=== PATIENT | male | born 1935 | race Caucasian/White ===

== ENCOUNTER 2017-01-09 07:34 | Emergency (ER) | payer OTHER, BC ==
[~2017-01-09] VITALS: Ht 175.3 cm; Wt 98.3 kg
[~2017-01-09 07:34] MED LIST: CRESTOR5 MG PO; Coumadin,Jantoven PO; Lopressor PO; SENOKOT S,PE1 TABLET PO; Tambocor PO; Theragran-M,Centrum, PO; Tylenol Regular Stre PO; ULTRAM50 MG PO
[2017-01-09 08:34] LABS: MCH 29.1 PG (29.0-34.0); MCHC 32.4 G/DL (30.0-36.0); MCV 89.8 FL (86-99); MEAN PLAT.VOLUME 10.6 uM^3 (9.0-12.4); PLATELET COUNT 167 K/uL (156-360); RBC DIS.WIDTH-CV 14.1 % (11.8-14.6); RBC DIS.WIDTH-SD 46.5 % (39-53); RED BLOOD COUNT 5.01 M/uL (4.00-5.50); WHITE BLOOD COUNT 9.2 K/uL (4.1-10.2)
[2017-01-09 08:42] LABS: CHLORIDE 107 mEq/L (99-109); POTASSIUM 4.6 mEq/L (3.7-5.4); SODIUM 141 mEq/L (136-147)
[2017-01-09 08:44] LABS: GLUCOSE 125 mg/dL (70-99)
[2017-01-09 08:45] LABS: ANION GAP 9 MEQ/L (2-14)
[2017-01-09 08:47] LABS: GFR ESTIMATE (CALCULATED) 41 mL/min/
[2017-01-09 08:48] LABS: UREA NITROGEN (BUN) 26 mg/dL (9-23)
[2017-01-09 08:55] LABS: TROP-I INTERPRETATION NEGATIVE; TROPONIN-I < 0.01 ng/mL (0.0-0.30)
[2017-01-09 12:05] LABS: TROP-I INTERPRETATION NEGATIVE; TROPONIN-I < 0.01 ng/mL (0.0-0.30)
[2017-01-09 13:09] VITALS: BP 108/69
== END 2017-01-09 13:10 | disposition home or self-care (01) ==
LOC: EME → EDBD 07:34 → EME 13:10
PROVIDERS: Emergency Medicine
DX: R55 Syncope and collapse (principal); I10 Essential (primary) hypertension; I25.2 Old myocardial infarction; Z95.0 Presence of cardiac pacemaker; Z79.01 Long term (current) use of anticoagulants; Z88.5 Allergy status to narcotic agent; Z87.891 Personal history of nicotine dependence
CPT/HCPCS: 71010; 80048; 84484; 85027; 93005; 99281; 99285

== ENCOUNTER 2017-04-16 16:16 | Emergency (ER) | payer OTHER, BC ==
[~2017-04-16] VITALS: Ht 175.3 cm; Wt 96.5 kg
[2017-04-16 17:13] LABS: HEMATOCRIT 45.9 % (38.0-50.0); MCHC 32.9 G/DL (30.0-36.0); MCV 91.1 FL (86-99); MEAN PLAT.VOLUME 10.3 uM^3 (9.0-12.4); PLATELET COUNT 142 K/uL (156-360); RBC DIS.WIDTH-CV 14.5 % (11.8-14.6); RBC DIS.WIDTH-SD 48.5 % (39-53); RED BLOOD COUNT 5.04 M/uL (4.00-5.50); WHITE BLOOD COUNT 7.6 K/uL (4.1-10.2)
[2017-04-16 17:22] LABS: CHLORIDE 105 mEq/L (99-109); POTASSIUM 4.7 mEq/L (3.7-5.4); SODIUM 142 mEq/L (136-147)
[2017-04-16 17:24] LABS: GLUCOSE 111 mg/dL (70-99)
[2017-04-16 17:25] LABS: ANION GAP 11 MEQ/L (2-14)
[2017-04-16 17:26] LABS: TOTAL BILIRUBIN 0.5 mg/dL (0.0-1.0)
[2017-04-16 17:28] LABS: ALKALINE PHOSPHATASE 71 IU/L (3-129); GFR ESTIMATE (CALCULATED) 32 mL/min/
[2017-04-16 17:29] LABS: UREA NITROGEN (BUN) 25 mg/dL (9-23)
[2017-04-16 17:31] LABS: LIPASE 38 U/L (1.0-51.0)
[2017-04-16 17:34] LABS: TROP-I INTERPRETATION NEGATIVE; TROPONIN-I < 0.01 ng/mL (0.0-0.30)
[2017-04-16] MEDS ORDERED: PEPCID20 MG PO (18:04)
[2017-04-16] MEDS ORDERED: THORAZINE25 MG PO (18:04)
[2017-04-16 19:22] VITALS: BP 198/99
== END 2017-04-16 19:25 | disposition home or self-care (01) ==
LOC: EME 16:16
PROVIDERS: Physician Assistant
DX: R06.6 Hiccough (principal); J02.9 Acute pharyngitis, unspecified; I45.10 Unspecified right bundle-branch block; I48.91 Unspecified atrial fibrillation; Z79.01 Long term (current) use of anticoagulants; I10 Essential (primary) hypertension; I25.2 Old myocardial infarction; Z87.891 Personal history of nicotine dependence
CPT/HCPCS: 70360; 71020; 80053; 83690; 84484; 85027; 93005; 99281; 99284; Q0161

== ENCOUNTER 2017-04-18 13:06 | Emergency (ER) | payer OTHER, BC ==
[~2017-04-18] VITALS: Ht 177.8 cm; Wt 95.8 kg
[~2017-04-18 13:06] MED LIST changes: +PEPCID20 MG PO; +THORAZINE25 MG PO
[2017-04-18] MEDS ORDERED: VALIUM5 MG PO (17:08)
[2017-04-18 17:45] VITALS: BP 157/91
== END 2017-04-18 17:47 | disposition home or self-care (01) ==
LOC: EME 13:06
DX: R06.6 Hiccough (principal); Z85.46 Personal history of malignant neoplasm of prostate; Z85.528 Personal history of other malignant neoplasm of kidney; I10 Essential (primary) hypertension; I25.2 Old myocardial infarction; Z87.891 Personal history of nicotine dependence
CPT/HCPCS: 70450; 99281; 99283

== ENCOUNTER 2017-11-08 17:08 | Emergency (ER) | payer OTHER, BC ==
[~2017-11-08] VITALS: Ht 177.8 cm; Wt 90.0 kg
[~2017-11-08 17:08] MED LIST changes: +VALIUM5 MG PO
[2017-11-08 18:03] LABS: BASOPHIL (%) 0.3 % (0-1); EOSINOPHIL (%) 1.7 % (0-5); EOSINOPHIL COUNT 0.2 K/uL (0-0.3); HEMATOCRIT 41.6 % (38.0-50.0); HEMOGLOBIN 13.8 G/DL (12.5-16.6); IMMATURE GRANULOCYTE (%) 1.2 % (0.0-0.7); LYMPHOCYTE (%) 6.3 % (15-42); LYMPHOCYTE COUNT 0.6 K/uL (1.0-2.8); MCHC 33.2 G/DL (30.0-36.0); MCV 93.5 FL (86-99); MONOCYTE (%) 10.8 % (3-12); NEUTROPHIL (%) 79.7 % (45-76); NEUTROPHIL COUNT 7.4 K/uL (1.8-6.4); PLATELET COUNT 140 K/uL (156-360); RBC DIS.WIDTH-CV 13.8 % (11.8-14.6); RBC DIS.WIDTH-SD 47.4 % (39-53); RED BLOOD COUNT 4.45 M/uL (4.00-5.50); WHITE BLOOD COUNT 9.3 K/uL (4.1-10.2)
[2017-11-08 18:11] LABS: CHLORIDE 110 mEq/L (99-109); POTASSIUM 5.2 mEq/L (3.7-5.4); SODIUM 141 mEq/L (136-147)
[2017-11-08 18:13] LABS: GLUCOSE 113 mg/dL (70-99)
[2017-11-08 18:17] LABS: CREATININE 1.7 mg/dL (0.6-1.3); GFR ESTIMATE (CALCULATED) 41 mL/min/ (58.99-99999)
[2017-11-08 18:18] LABS: UREA NITROGEN (BUN) 20 mg/dL (9-23)
[2017-11-08 18:31] LABS: APPEARANCE CLEAR ((CLEAR)); BILIRUBIN NEGATIVE; BLOOD SMALL; COLOR YELLOW ((YELLOW)); GLUCOSE (STRIP) NEGATIVE; KETONES NEGATIVE; LEUKOCYTES NEGATIVE; NITRITE NEGATIVE; PROTEIN (STRIP) NEGATIVE
[2017-11-08 18:33] LABS: BACTERIA NONE SEEN /HPF; EPITHELIAL CELLS RARE /HPF; MUCUS NONE SEEN /LPF; RED BLOOD CELLS 0-5 /HPF (0-5); UCUL ADDED? NO; WHITE BLOOD CELLS 0-5 /HPF (0-5)
[2017-11-08 18:41] LABS: TROP-I INTERPRETATION NEGATIVE; TROPONIN-I < 0.01 ng/mL (0.0-0.30)
[2017-11-08 20:21] LABS: INTER. NORMALIZED RATIO 2.9
[2017-11-08 21:09] LABS: TROP-I INTERPRETATION NEGATIVE; TROPONIN-I 0.02 ng/mL (0.0-0.30)
[2017-11-08 22:42] VITALS: BP 167/92
== END 2017-11-08 22:56 | disposition home or self-care (01) ==
LOC: EME 17:08
PROVIDERS: Physician Assistant Medical
DX: M25.511 Pain in right shoulder (principal); R07.9 Chest pain, unspecified; V43.02XA Car driver injured in collision with other type car in nontraffic accident, initial encounter; Y92.410 Unspecified street and highway as the place of occurrence of the external cause; I10 Essential (primary) hypertension; E78.5 Hyperlipidemia, unspecified; Z95.0 Presence of cardiac pacemaker; Z87.891 Personal history of nicotine dependence; Z88.5 Allergy status to narcotic agent
CPT/HCPCS: 71045; 80048; 81003; 84484; 85025; 85610; 93005; 99281; 99285

== ENCOUNTER 2018-01-11 20:07 | Inpatient (IN) | payer OTHER, BC ==
[~2018-01-11] VITALS: Ht 172.7 cm; Wt 91.8 kg
[2018-01-11 21:01] LABS: HEMATOCRIT 43.9 % (38.0-50.0); HEMOGLOBIN 14.7 G/DL (12.5-16.6); MCH 30.3 PG (29.0-34.0); MCHC 33.5 G/DL (30.0-36.0); MCV 90.5 FL (86-99); PLATELET COUNT 154 K/uL (156-360); RBC DIS.WIDTH-CV 14.1 % (11.8-14.6); RBC DIS.WIDTH-SD 46.8 % (39-53); RED BLOOD COUNT 4.85 M/uL (4.00-5.50); WHITE BLOOD COUNT 12.4 K/uL (4.1-10.2)
[2018-01-11 21:08] LABS: ALBUMIN 4.4 g/dL (3.2-4.8)
[2018-01-11 21:09] LABS: CHLORIDE 103 mEq/L (99-109); POTASSIUM 4.8 mEq/L (3.7-5.4); SODIUM 139 mEq/L (136-147)
[2018-01-11 21:11] LABS: GLUCOSE 152 mg/dL (70-99); TOTAL PROTEIN 7.2 g/dL (6.4-8.3)
[2018-01-11 21:13] LABS: TOTAL BILIRUBIN 0.5 mg/dL (0.0-1.0)
[2018-01-11 21:14] LABS: ALKALINE PHOSPHATASE 106 IU/L (3-129)
[2018-01-11 21:15] LABS: GFR ESTIMATE (CALCULATED) 34 mL/min/ (58.99-99999)
[2018-01-11 21:16] LABS: AST (GOT) 20 IU/L (2-34); UREA NITROGEN (BUN) 30 mg/dL (9-23)
[2018-01-11 21:17] LABS: ALT (GPT) 22 IU/L (3-49)
[2018-01-11 22:40] LABS: APPEARANCE CLEAR ((CLEAR)); BILIRUBIN NEGATIVE; BLOOD NEGATIVE; COLOR YELLOW ((YELLOW)); GLUCOSE (STRIP) 50; KETONES NEGATIVE; LEUKOCYTES NEGATIVE; NITRITE NEGATIVE; PROTEIN (STRIP) 30; SPECIFIC GRAVITY 1.016 (1.000-1.030); UCUL ADDED? NO; UROBILINOGEN 0.2 MG/DL (0.2-1.0)
[2018-01-11 23:03] LABS: LIPASE 34 U/L (1.0-51.0)
[2018-01-11 23:06] LABS: TROP-I INTERPRETATION NEGATIVE; TROPONIN-I < 0.01 ng/mL (0.0-0.30)
[2018-01-12] MEDS ORDERED: AMIODARONE HCL200 MG PO (01:33)
[2018-01-12] MEDS ORDERED: METOPROLOL SUCC50 MG PO (01:34)
[2018-01-12] MEDS ORDERED: ATORVASTATIN CA80 MG PO (01:35)
[2018-01-12] MEDS ORDERED: CALCITRIOL0.25 MCG PO (01:37)
[2018-01-12] MEDS ORDERED: ADVAIR 250/501 DISK IH (01:38)
[2018-01-12] MEDS ORDERED: ICAPS TABLET1 EACH PO (01:39)
[2018-01-12] MEDS ORDERED: WARFARIN SODIU2.5 MG PO (01:43)
[2018-01-12] MEDS ORDERED: WARFARIN SODIUM5 MG PO (01:45)
[2018-01-12] MEDS ORDERED: COUMADIN7.5 MG PO (01:46)
[2018-01-12 05:13] LABS: TROP-I INTERPRETATION NEGATIVE; TROPONIN-I < 0.01 ng/mL (0.0-0.30)
[2018-01-12 07:42] VITALS: BP 182/82
[2018-01-12 11:14] VITALS: BP 159/73
[2018-01-12] MEDS ORDERED: CALCIPOTRIENE60 G1 TP (11:23)
[2018-01-12] MEDS ORDERED: TRELEGY ELLIPT1 EACH IH (11:24)
[2018-01-12 12:49] LABS: INTER. NORMALIZED RATIO 1.3
[2018-01-12] MEDS ORDERED: COUMADIN5 MG PO (14:02)
[2018-01-12 15:13] VITALS: BP 133/63
[2018-01-12 16:49] LABS: HEMOGLOBIN 13.6 G/DL (12.5-16.6); MCH 29.7 PG (29.0-34.0); MCHC 33.2 G/DL (30.0-36.0); MCV 89.5 FL (86-99); PLATELET COUNT 138 K/uL (156-360); RBC DIS.WIDTH-CV 14.5 % (11.8-14.6); RBC DIS.WIDTH-SD 47.4 % (39-53); RED BLOOD COUNT 4.58 M/uL (4.00-5.50); WHITE BLOOD COUNT 28.6 K/uL (4.1-10.2)
[2018-01-12 17:15] LABS: ALBUMIN 3.8 G/DL (3.2-4.8); ALKALINE PHOSPHATASE 77 IU/L (3-129); ALT (GPT) 15 IU/L (3-49); AST (GOT) 15 IU/L (2-34); C-REACTIVE PROTEIN 114.8 MG/L (0-10); CHLORIDE 101 MEQ/L (99-109); GFR ESTIMATE (CALCULATED) 52 mL/min/ (58.99-99999); GLUCOSE 211 mg/dL (70-99); POTASSIUM 4.1 MEQ/L (3.7-5.4); SODIUM 136 MEQ/L (136-147); TOTAL BILIRUBIN 0.9 MG/DL (0.0-1.0); TOTAL PROTEIN 5.5 G/DL (6.4-8.3); UREA NITROGEN (BUN) 25 mg/dL (9-23)
[2018-01-12 17:33] LABS: CREATININE 1.4 MG/DL (0.6-1.3)
[2018-01-12 19:14] VITALS: BP 160/73
[2018-01-12 23:23] VITALS: BP 116/60
[2018-01-13 03:11] VITALS: BP 102/55
[2018-01-13 07:21] LABS: HEMATOCRIT 40.8 % (38.0-50.0); HEMOGLOBIN 13.5 G/DL (12.5-16.6); MCH 30.6 PG (29.0-34.0); MCHC 33.1 G/DL (30.0-36.0); MCV 92.5 FL (86-99); PLATELET COUNT 124 K/uL (156-360); RBC DIS.WIDTH-CV 14.8 % (11.8-14.6); RBC DIS.WIDTH-SD 50.6 % (39-53); RED BLOOD COUNT 4.41 M/uL (4.00-5.50); WHITE BLOOD COUNT 26.2 K/uL (4.1-10.2)
[2018-01-13 07:37] LABS: INTER. NORMALIZED RATIO 1.5
[2018-01-13 08:38] VITALS: BP 130/60
[2018-01-13 09:51] LABS: CHLORIDE 104 MEQ/L (99-109); CREATININE 1.6 MG/DL (0.6-1.3); GFR ESTIMATE (CALCULATED) 44 mL/min/ (58.99-99999); GLUCOSE 163 mg/dL (70-99); POTASSIUM 4.2 MEQ/L (3.7-5.4); SODIUM 137 MEQ/L (136-147); UREA NITROGEN (BUN) 32 mg/dL (9-23)
[2018-01-13 11:03] VITALS: BP 91/56
[2018-01-13 19:36] VITALS: BP 94/58
[2018-01-13 22:57] VITALS: BP 93/54
[2018-01-13 23:14] VITALS: BP 114/57
[2018-01-14 03:56] VITALS: BP 109/70
[2018-01-14 05:42] LABS: INTER. NORMALIZED RATIO 2.1
[2018-01-14 08:18] VITALS: BP 117/59
[2018-01-14 08:53] LABS: ALBUMIN 2.9 G/DL (3.2-4.8); ALKALINE PHOSPHATASE 71 IU/L (3-129); ALT (GPT) 14 IU/L (3-49); CHLORIDE 106 MEQ/L (99-109); CREATININE 1.8 MG/DL (0.6-1.3); GFR ESTIMATE (CALCULATED) 39 mL/min/ (58.99-99999); POTASSIUM 3.8 MEQ/L (3.7-5.4); SODIUM 140 MEQ/L (136-147); TOTAL PROTEIN 4.9 G/DL (6.4-8.3); UREA NITROGEN (BUN) 35 mg/dL (9-23)
[2018-01-14 08:56] LABS: AST (GOT) 24 IU/L (2-34); GLUCOSE 110 mg/dL (70-99); TOTAL BILIRUBIN 0.7 MG/DL (0.0-1.0)
[2018-01-14 09:01] LABS: BASOPHIL (%) 0.1 % (0-1); EOSINOPHIL (%) 0.1 % (0-5); HEMATOCRIT 37.3 % (38.0-50.0); HEMOGLOBIN 12.2 G/DL (12.5-16.6); IMMATURE GRANULOCYTE (%) 2.5 % (0.0-0.7); LYMPHOCYTE (%) 2.8 % (15-42); LYMPHOCYTE COUNT 0.5 K/uL (1.0-2.8); MCH 30.4 PG (29.0-34.0); MCHC 32.7 G/DL (30.0-36.0); MONOCYTE (%) 6.8 % (3-12); MONOCYTE COUNT 1.2 K/uL (0-0.8); NEUTROPHIL (%) 87.7 % (45-76); PLATELET COUNT 109 K/uL (156-360); RBC DIS.WIDTH-CV 14.6 % (11.8-14.6); RBC DIS.WIDTH-SD 50.4 % (39-53); RED BLOOD COUNT 4.01 M/uL (4.00-5.50); WHITE BLOOD COUNT 18.2 K/uL (4.1-10.2)
[2018-01-14 11:58] VITALS: BP 122/69
[2018-01-14 16:21] VITALS: BP 127/72
[2018-01-14 20:22] VITALS: BP 138/81
[2018-01-15] VITALS (7 sets, daily range): BP systolic 128–142; BP diastolic 64–92
[2018-01-15 06:17] LABS: HEMATOCRIT 35.5 % (38.0-50.0); HEMOGLOBIN 11.5 G/DL (12.5-16.6); MCH 29.6 PG (29.0-34.0); MCHC 32.4 G/DL (30.0-36.0); MCV 91.3 FL (86-99); PLATELET COUNT 121 K/uL (156-360); RBC DIS.WIDTH-CV 14.6 % (11.8-14.6); RBC DIS.WIDTH-SD 49.1 % (39-53); RED BLOOD COUNT 3.89 M/uL (4.00-5.50); WHITE BLOOD COUNT 15.1 K/uL (4.1-10.2)
[2018-01-15 06:21] LABS: CHLORIDE 108 MEQ/L (99-109); CREATININE 1.4 MG/DL (0.6-1.3); GFR ESTIMATE (CALCULATED) 52 mL/min/ (58.99-99999); GLUCOSE 104 mg/dL (70-99); SODIUM 138 MEQ/L (136-147); UREA NITROGEN (BUN) 23 mg/dL (9-23)
[2018-01-16 03:10] VITALS: BP 150/85
[2018-01-16 05:27] LABS: HEMATOCRIT 36.1 % (38.0-50.0); HEMOGLOBIN 11.9 G/DL (12.5-16.6); MCH 29.8 PG (29.0-34.0); MCV 90.3 FL (86-99); PLATELET COUNT 137 K/uL (156-360); RBC DIS.WIDTH-CV 14.6 % (11.8-14.6); RBC DIS.WIDTH-SD 48.8 % (39-53); WHITE BLOOD COUNT 10.2 K/uL (4.1-10.2)
[2018-01-16 05:32] LABS: INTER. NORMALIZED RATIO 2.3
[2018-01-16 05:54] LABS: CHLORIDE 108 MEQ/L (99-109); CREATININE 1.5 MG/DL (0.6-1.3); GFR ESTIMATE (CALCULATED) 48 mL/min/ (58.99-99999); GLUCOSE 152 mg/dL (70-99); POTASSIUM 3.7 MEQ/L (3.7-5.4); SODIUM 138 MEQ/L (136-147); UREA NITROGEN (BUN) 21 mg/dL (9-23)
[2018-01-16 07:50] VITALS: BP 148/90
[2018-01-16 11:55] VITALS: BP 140/91
[2018-01-16] MEDS ORDERED: CIPROFLOXACIN500 M1 PO (12:25)
[2018-01-16] MEDS ORDERED: METRONIDAZOLE500 MG PO (12:25)
== END 2018-01-16 16:28 | disposition home or self-care (01) | DRG 683 ==
LOC: EME 20:07 → EDOF 01-12 04:37 → 3EAST 01-12 04:37 → ENRESERV 01-12 04:45 → 3EAST 01-12 07:34
PROVIDERS: Emergency Medicine; Family Medicine; Hospitalist
PROC: 5A09357 Assistance with Respiratory Ventilation, Less than 24 Consecutive Hours, Continuous Positive Airway Pressure (ICD-10-PCS; principal; 2018-01-13)
DX: N17.9 Acute kidney failure, unspecified (principal); J98.11 Atelectasis; I25.10 Atherosclerotic heart disease of native coronary artery without angina pectoris; I48.0 Paroxysmal atrial fibrillation; E78.5 Hyperlipidemia, unspecified; Z95.5 Presence of coronary angioplasty implant and graft; I25.2 Old myocardial infarction; Z96.653 Presence of artificial knee joint, bilateral; Z95.0 Presence of cardiac pacemaker; Z87.891 Personal history of nicotine dependence; E66.9 Obesity, unspecified; Z68.30 Body mass index [BMI] 30.0-30.9, adult; Z79.01 Long term (current) use of anticoagulants; N18.3 Chronic kidney disease, stage 3 (moderate); I12.9 Hypertensive chronic kidney disease with stage 1 through stage 4 chronic kidney disease, or unspecified chronic kidney disease; Z90.5 Acquired absence of kidney; Z85.528 Personal history of other malignant neoplasm of kidney; E11.22 Type 2 diabetes mellitus with diabetic chronic kidney disease; E86.0 Dehydration; T50.8X5A Adverse effect of diagnostic agents, initial encounter; Z85.46 Personal history of malignant neoplasm of prostate; D69.6 Thrombocytopenia, unspecified; M19.90 Unspecified osteoarthritis, unspecified site; K57.30 Diverticulosis of large intestine without perforation or abscess without bleeding; K80.00 Calculus of gallbladder with acute cholecystitis without obstruction; E03.9 Hypothyroidism, unspecified; Z90.79 Acquired absence of other genital organ(s); Z85.828 Personal history of other malignant neoplasm of skin; Z80.9 Family history of malignant neoplasm, unspecified
CPT/HCPCS: 36415; 71275; 74174; 74176; 78227; 80048; 80053; 81003; 83605; 83690; 84484; 85025; 85027; 85610; 86140; 87040; 93005; 94640; 94640 76; 94660; 94760; 94799; 99281; 99285; A9537; J0360; J0696; J1170; J1644; J2405; J2543; J2805; J3370; J7030; J7050

== ENCOUNTER 2018-03-31 09:39 | Inpatient (IN) | payer OTHER, BC ==
[~2018-03-31] VITALS: Ht 170.2 cm; Wt 90.8 kg
[~2018-03-31 09:39] MED LIST changes: +ADVAIR 250/501 DISK IH; +AMIODARONE HCL200 MG PO; +ATORVASTATIN CA40 MG PO; +CALCIPOTRIENE60 G1 TP; +CALCITRIOL0.25 MCG PO; +CIPROFLOXACIN500 M1 PO; +COUMADIN5 MG PO; +COUMADIN7.5 MG PO; +ICAPS TABLET1 EACH PO; +METOPROLOL SUCC50 MG PO; +METRONIDAZOLE500 MG PO; +TRELEGY ELLIPT1 EACH IH; +WARFARIN SODIU2.5 MG PO; +WARFARIN SODIUM5 MG PO
[2018-03-31 10:25] LABS: APPEARANCE SL.HAZY ((CLEAR)); BILIRUBIN NEGATIVE; BLOOD NEGATIVE; COLOR AMBER ((YELLOW)); GLUCOSE (STRIP) >=500; KETONES NEGATIVE; LEUKOCYTES NEGATIVE; NITRITE NEGATIVE; PROTEIN (STRIP) 30; SPECIFIC GRAVITY 1.018 (1.000-1.030)
[2018-03-31 10:32] LABS: BACTERIA RARE /HPF; EPITHELIAL CELLS RARE /HPF; MUCUS NONE SEEN /LPF; RED BLOOD CELLS 0-5 /HPF (0-5); WHITE BLOOD CELLS 0-5 /HPF (0-5)
[2018-03-31 10:33] LABS: BASOPHIL (%) 0.1 % (0-1); EOSINOPHIL (%) 0 % (0-5); IMMATURE GRANULOCYTE (%) 0.7 % (0.0-0.7); LYMPHOCYTE (%) 2.8 % (15-42); LYMPHOCYTE COUNT 0.4 K/uL (1.0-2.8); MCH 30.2 PG (29.0-34.0); MCHC 34.2 G/DL (30.0-36.0); MCV 88.2 FL (86-99); MONOCYTE (%) 10.3 % (3-12); MONOCYTE COUNT 1.3 K/uL (0-0.8); NEUTROPHIL (%) 86.1 % (45-76); NEUTROPHIL COUNT 10.7 K/uL (1.8-6.4); PLATELET COUNT 158 K/uL (156-360); RBC DIS.WIDTH-CV 14.9 % (11.8-14.6); RBC DIS.WIDTH-SD 48.6 % (39-53); RED BLOOD COUNT 4.31 M/uL (4.00-5.50); WHITE BLOOD COUNT 12.5 K/uL (4.1-10.2)
[2018-03-31 10:38] LABS: INTER. NORMALIZED RATIO 2.9
[2018-03-31 10:41] LABS: ALBUMIN 3.6 g/dL (3.2-4.8); CHLORIDE 103 mEq/L (99-109); POTASSIUM 4.2 mEq/L (3.7-5.4); SODIUM 136 mEq/L (136-147)
[2018-03-31 10:43] LABS: GLUCOSE 227 mg/dL (70-99); TOTAL PROTEIN 6.2 g/dL (6.4-8.3)
[2018-03-31 10:45] LABS: TOTAL BILIRUBIN 1.7 mg/dL (0.0-1.0)
[2018-03-31 10:47] LABS: ALKALINE PHOSPHATASE 271 IU/L (3-129); CREATININE 1.7 mg/dL (0.6-1.3); GFR ESTIMATE (CALCULATED) 41 mL/min/ (58.99-99999)
[2018-03-31 10:48] LABS: UREA NITROGEN (BUN) 26 mg/dL (9-23)
[2018-03-31 10:49] LABS: AST (GOT) 439 IU/L (2-34)
[2018-03-31 10:50] LABS: ALT (GPT) 489 IU/L (3-49); LIPASE 742 U/L (1.0-51.0)
[2018-03-31 13:44] VITALS: BP 159/77
[2018-03-31 16:10] VITALS: BP 188/94
[2018-03-31 16:30] VITALS: BP 140/82
[2018-03-31 19:54] VITALS: BP 147/95
[2018-04-01] VITALS (9 sets, daily range): BP systolic 144–182; BP diastolic 67–87
[2018-04-01 06:13] LABS: HEMATOCRIT 40.2 % (38.0-50.0); MCH 28.8 PG (29.0-34.0); MCHC 32.3 G/DL (30.0-36.0); MCV 89.1 FL (86-99); PLATELET COUNT 147 K/uL (156-360); RBC DIS.WIDTH-CV 15.2 % (11.8-14.6); RED BLOOD COUNT 4.51 M/uL (4.00-5.50); WHITE BLOOD COUNT 12.6 K/uL (4.1-10.2)
[2018-04-01 06:24] LABS: INTER. NORMALIZED RATIO 1.8
[2018-04-01 06:26] LABS: PTT 31.1 SEC (25-37)
[2018-04-01 06:48] LABS: ALBUMIN 3.3 G/DL (3.2-4.8); ALKALINE PHOSPHATASE 214 IU/L (3-129); ALT (GPT) 283 IU/L (3-49); AST (GOT) 136 IU/L (2-34); CHLORIDE 106 MEQ/L (99-109); CREATININE 1.4 MG/DL (0.6-1.3); DIRECT BILIRUBIN 1.3 mg/dL (0.0-0.3); GFR ESTIMATE (CALCULATED) 52 mL/min/ (58.99-99999); GLUCOSE 130 mg/dL (70-99); SODIUM 141 MEQ/L (136-147); TOTAL BILIRUBIN 2.6 MG/DL (0.0-1.0); TOTAL PROTEIN 5.5 G/DL (6.4-8.3); UREA NITROGEN (BUN) 17 mg/dL (9-23)
[2018-04-01 06:49] LABS: POTASSIUM 5.1 MEQ/L (3.7-5.4)
[2018-04-01 08:06] LABS: LIPASE 825 U/L (1.0-51.0)
[2018-04-02 04:00] VITALS: BP 164/81
[2018-04-02 05:57] LABS: BASOPHIL (%) 0.2 % (0-1); EOSINOPHIL (%) 0.7 % (0-5); EOSINOPHIL COUNT 0.1 K/uL (0-0.3); HEMATOCRIT 36.1 % (38.0-50.0); HEMOGLOBIN 11.7 G/DL (12.5-16.6); IMMATURE GRANULOCYTE (%) 0.7 % (0.0-0.7); LYMPHOCYTE (%) 5.6 % (15-42); LYMPHOCYTE COUNT 0.6 K/uL (1.0-2.8); MCH 28.9 PG (29.0-34.0); MCHC 32.4 G/DL (30.0-36.0); MCV 89.1 FL (86-99); MONOCYTE (%) 8.7 % (3-12); MONOCYTE COUNT 0.9 K/uL (0-0.8); NEUTROPHIL (%) 84.1 % (45-76); PLATELET COUNT 142 K/uL (156-360); RBC DIS.WIDTH-SD 49.5 % (39-53); RED BLOOD COUNT 4.05 M/uL (4.00-5.50); WHITE BLOOD COUNT 10.7 K/uL (4.1-10.2)
[2018-04-02 06:04] LABS: INTER. NORMALIZED RATIO 1.5
[2018-04-02 06:36] LABS: ALBUMIN 2.9 G/DL (3.2-4.8); ALKALINE PHOSPHATASE 163 IU/L (3-129); ALT (GPT) 167 IU/L (3-49); CHLORIDE 107 MEQ/L (99-109); CREATININE 1.2 MG/DL (0.6-1.3); GFR ESTIMATE (CALCULATED) > 59 mL/min/ (58.99-99999); GLUCOSE 101 mg/dL (70-99); SODIUM 141 MEQ/L (136-147); TOTAL PROTEIN 5.1 G/DL (6.4-8.3); UREA NITROGEN (BUN) 12 mg/dL (9-23)
[2018-04-02 06:38] LABS: ALBUMIN 2.9 G/DL (3.2-4.8); ALKALINE PHOSPHATASE 161 IU/L (3-129); ALT (GPT) 163 IU/L (3-49); CHLORIDE 107 MEQ/L (99-109); CREATININE 1.2 MG/DL (0.6-1.3); GFR ESTIMATE (CALCULATED) > 59 mL/min/ (58.99-99999); GLUCOSE 100 mg/dL (70-99); SODIUM 141 MEQ/L (136-147); TOTAL PROTEIN 5.1 G/DL (6.4-8.3); UREA NITROGEN (BUN) 11 mg/dL (9-23)
[2018-04-02 06:39] LABS: AST (GOT) 48 IU/L (2-34); TOTAL BILIRUBIN 1.2 MG/DL (0.0-1.0)
[2018-04-02 06:41] LABS: AST (GOT) 48 IU/L (2-34); POTASSIUM 3.9 MEQ/L (3.7-5.4); TOTAL BILIRUBIN 1.3 MG/DL (0.0-1.0)
[2018-04-02 07:37] VITALS: BP 164/83
[2018-04-02 08:52] LABS: LIPASE 303 U/L (1.0-51.0)
[2018-04-02 11:49] VITALS: BP 177/80
[2018-04-02 16:00] VITALS: BP 184/88
[2018-04-02 20:00] VITALS: BP 176/96
[2018-04-03] VITALS: BP 178/84
[2018-04-03 04:00] VITALS: BP 180/94
[2018-04-03 05:56] LABS: BASOPHIL (%) 0.2 % (0-1); EOSINOPHIL (%) 1.4 % (0-5); EOSINOPHIL COUNT 0.1 K/uL (0-0.3); HEMATOCRIT 38.8 % (38.0-50.0); HEMOGLOBIN 12.5 G/DL (12.5-16.6); IMMATURE GRANULOCYTE (%) 0.6 % (0.0-0.7); LYMPHOCYTE (%) 6.8 % (15-42); LYMPHOCYTE COUNT 0.7 K/uL (1.0-2.8); MCH 28.5 PG (29.0-34.0); MCHC 32.2 G/DL (30.0-36.0); MCV 88.6 FL (86-99); MONOCYTE (%) 8.6 % (3-12); MONOCYTE COUNT 0.8 K/uL (0-0.8); NEUTROPHIL (%) 82.4 % (45-76); PLATELET COUNT 168 K/uL (156-360); RBC DIS.WIDTH-CV 14.7 % (11.8-14.6); RED BLOOD COUNT 4.38 M/uL (4.00-5.50); WHITE BLOOD COUNT 9.7 K/uL (4.1-10.2)
[2018-04-03 06:01] LABS: INTER. NORMALIZED RATIO 1.6
[2018-04-03 06:40] LABS: ALBUMIN 3.3 G/DL (3.2-4.8); ALKALINE PHOSPHATASE 188 IU/L (3-129); ALT (GPT) 126 IU/L (3-49); AST (GOT) 28 IU/L (2-34); CHLORIDE 109 MEQ/L (99-109); CREATININE 1.1 MG/DL (0.6-1.3); GFR ESTIMATE (CALCULATED) > 59 mL/min/ (58.99-99999); GLUCOSE 102 mg/dL (70-99); LIPASE 87 U/L (1.0-51.0); SODIUM 143 MEQ/L (136-147); TOTAL PROTEIN 5.6 G/DL (6.4-8.3); UREA NITROGEN (BUN) 9 mg/dL (9-23)
[2018-04-03 06:42] LABS: POTASSIUM 5.2 MEQ/L (3.7-5.4); TOTAL BILIRUBIN 0.9 MG/DL (0.0-1.0)
[2018-04-03 07:29] VITALS: BP 190/100
[2018-04-03 16:12] VITALS: BP 170/87
[2018-04-03 20:00] VITALS: BP 190/94
[2018-04-04] VITALS (7 sets, daily range): BP systolic 156–183; BP diastolic 79–92
[2018-04-04 08:00] LABS: HEMATOCRIT 39.6 % (38.0-50.0); MCH 29.3 PG (29.0-34.0); MCHC 32.8 G/DL (30.0-36.0); MCV 89.2 FL (86-99); PLATELET COUNT 197 K/uL (156-360); RBC DIS.WIDTH-CV 15.1 % (11.8-14.6); RBC DIS.WIDTH-SD 49.4 % (39-53); RED BLOOD COUNT 4.44 M/uL (4.00-5.50); WHITE BLOOD COUNT 15.1 K/uL (4.1-10.2)
[2018-04-04 08:08] LABS: INTER. NORMALIZED RATIO 2.2
[2018-04-04 08:23] LABS: ALBUMIN 3.2 G/DL (3.2-4.8); ALKALINE PHOSPHATASE 173 IU/L (3-129); ALT (GPT) 109 IU/L (3-49); AST (GOT) 40 IU/L (2-34); CHLORIDE 103 MEQ/L (99-109); CREATININE 1.3 MG/DL (0.6-1.3); GFR ESTIMATE (CALCULATED) 56 mL/min/ (58.99-99999); GLUCOSE 145 mg/dL (70-99); MAGNESIUM 1.8 mg/dl (1.3-2.7); PHOSPHORUS 3.3 mg/dL (2.5-4.9); POTASSIUM 5.1 MEQ/L (3.7-5.4); SODIUM 139 MEQ/L (136-147); TOTAL PROTEIN 5.6 G/DL (6.4-8.3); UREA NITROGEN (BUN) 13 mg/dL (9-23)
[2018-04-05 03:29] VITALS: BP 144/90
[2018-04-05 06:27] LABS: HEMATOCRIT 38.8 % (38.0-50.0); HEMOGLOBIN 12.7 G/DL (12.5-16.6); MCH 28.8 PG (29.0-34.0); MCHC 32.7 G/DL (30.0-36.0); PLATELET COUNT 193 K/uL (156-360); RBC DIS.WIDTH-CV 15.2 % (11.8-14.6); RBC DIS.WIDTH-SD 49.1 % (39-53); RED BLOOD COUNT 4.41 M/uL (4.00-5.50); WHITE BLOOD COUNT 11.8 K/uL (4.1-10.2)
[2018-04-05 06:37] LABS: INTER. NORMALIZED RATIO 2.6
[2018-04-05 06:48] LABS: ALBUMIN 2.9 G/DL (3.2-4.8); ALKALINE PHOSPHATASE 148 IU/L (3-129); ALT (GPT) 78 IU/L (3-49); AST (GOT) 24 IU/L (2-34); CHLORIDE 102 MEQ/L (99-109); CREATININE 1.2 MG/DL (0.6-1.3); GFR ESTIMATE (CALCULATED) > 59 mL/min/ (58.99-99999); GLUCOSE 128 mg/dL (70-99); POTASSIUM 4.1 MEQ/L (3.7-5.4); SODIUM 139 MEQ/L (136-147); TOTAL BILIRUBIN 1.1 MG/DL (0.0-1.0); TOTAL PROTEIN 5.1 G/DL (6.4-8.3); UREA NITROGEN (BUN) 11 mg/dL (9-23)
[2018-04-05 08:01] VITALS: BP 132/77
[2018-04-05 11:30] VITALS: BP 118/74
[2018-04-05 17:04] VITALS: BP 122/52
[2018-04-05 19:28] VITALS: BP 148/78
[2018-04-06] VITALS (10 sets, daily range): BP systolic 107–143; BP diastolic 64–98
[2018-04-06 05:46] LABS: HEMATOCRIT 38.8 % (38.0-50.0); HEMOGLOBIN 12.5 G/DL (12.5-16.6); MCH 28.6 PG (29.0-34.0); MCHC 32.2 G/DL (30.0-36.0); MCV 88.8 FL (86-99); PLATELET COUNT 189 K/uL (156-360); RBC DIS.WIDTH-CV 15.2 % (11.8-14.6); RBC DIS.WIDTH-SD 49.8 % (39-53); RED BLOOD COUNT 4.37 M/uL (4.00-5.50); WHITE BLOOD COUNT 12.4 K/uL (4.1-10.2)
[2018-04-06 06:15] LABS: CHLORIDE 104 MEQ/L (99-109); CREATININE 1.4 MG/DL (0.6-1.3); GFR ESTIMATE (CALCULATED) 52 mL/min/ (58.99-99999); GLUCOSE 134 mg/dL (70-99); POTASSIUM 4.2 MEQ/L (3.7-5.4); SODIUM 140 MEQ/L (136-147); UREA NITROGEN (BUN) 14 mg/dL (9-23)
[2018-04-06 06:18] LABS: INTER. NORMALIZED RATIO 2.5
[2018-04-06 08:11] LABS: ALBUMIN 2.7 G/DL (3.2-4.8); ALKALINE PHOSPHATASE 151 IU/L (3-129); ALT (GPT) 58 IU/L (3-49); AST (GOT) 23 IU/L (2-34); TOTAL PROTEIN 4.9 G/DL (6.4-8.3)
[2018-04-06 08:12] LABS: DIRECT BILIRUBIN 0.3 mg/dL (0.0-0.3); TOTAL BILIRUBIN 0.8 MG/DL (0.0-1.0)
[2018-04-07 03:34] VITALS: BP 147/92
[2018-04-07 05:30] LABS: HEMATOCRIT 37.2 % (38.0-50.0); HEMOGLOBIN 12.3 G/DL (12.5-16.6); MCH 29.4 PG (29.0-34.0); MCHC 33.1 G/DL (30.0-36.0); MCV 88.8 FL (86-99); PLATELET COUNT 223 K/uL (156-360); RBC DIS.WIDTH-CV 15.3 % (11.8-14.6); RBC DIS.WIDTH-SD 49.5 % (39-53); RED BLOOD COUNT 4.19 M/uL (4.00-5.50); WHITE BLOOD COUNT 11.9 K/uL (4.1-10.2)
[2018-04-07 05:36] LABS: INTER. NORMALIZED RATIO 1.8
[2018-04-07 06:06] LABS: ALBUMIN 2.8 G/DL (3.2-4.8); ALKALINE PHOSPHATASE 169 IU/L (3-129); ALT (GPT) 52 IU/L (3-49); AST (GOT) 25 IU/L (2-34); CHLORIDE 103 MEQ/L (99-109); CREATININE 1.3 MG/DL (0.6-1.3); GFR ESTIMATE (CALCULATED) 56 mL/min/ (58.99-99999); GLUCOSE 135 mg/dL (70-99); POTASSIUM 3.6 MEQ/L (3.7-5.4); SODIUM 138 MEQ/L (136-147); TOTAL BILIRUBIN 0.8 MG/DL (0.0-1.0); TOTAL PROTEIN 4.9 G/DL (6.4-8.3); UREA NITROGEN (BUN) 16 mg/dL (9-23)
[2018-04-07 07:50] VITALS: BP 138/102
[2018-04-07 11:37] VITALS: BP 116/89
[2018-04-07 12:56] LABS: TROP-I INTERPRETATION NEGATIVE; TROPONIN-I 0.01 ng/mL (0.0-0.30)
[2018-04-07 18:03] VITALS: BP 129/87
[2018-04-07 19:32] VITALS: BP 137/84
[2018-04-07 23:36] VITALS: BP 114/76
[2018-04-08 03:47] VITALS: BP 115/78
[2018-04-08 05:59] LABS: HEMATOCRIT 37.5 % (38.0-50.0); HEMOGLOBIN 12.2 G/DL (12.5-16.6); MCH 28.9 PG (29.0-34.0); MCHC 32.5 G/DL (30.0-36.0); MCV 88.9 FL (86-99); PLATELET COUNT 239 K/uL (156-360); RBC DIS.WIDTH-CV 15.1 % (11.8-14.6); RBC DIS.WIDTH-SD 49.1 % (39-53); RED BLOOD COUNT 4.22 M/uL (4.00-5.50); WHITE BLOOD COUNT 9.9 K/uL (4.1-10.2)
[2018-04-08 06:17] LABS: INTER. NORMALIZED RATIO 1.4
[2018-04-08 06:38] LABS: ALBUMIN 2.5 G/DL (3.2-4.8); ALKALINE PHOSPHATASE 162 IU/L (3-129); ALT (GPT) 48 IU/L (3-49); AST (GOT) 26 IU/L (2-34); CHLORIDE 104 MEQ/L (99-109); CREATININE 1.5 MG/DL (0.6-1.3); GFR ESTIMATE (CALCULATED) 48 mL/min/ (58.99-99999); POTASSIUM 4.1 MEQ/L (3.7-5.4); SODIUM 141 MEQ/L (136-147); TOTAL BILIRUBIN 0.8 MG/DL (0.0-1.0); TOTAL PROTEIN 4.8 G/DL (6.4-8.3); UREA NITROGEN (BUN) 18 mg/dL (9-23)
[2018-04-08 06:40] LABS: GLUCOSE 95 mg/dL (70-99)
[2018-04-08 06:48] LABS: LIPASE 89 U/L (1.0-51.0)
[2018-04-08 07:16] VITALS: BP 136/90
[2018-04-08 11:04] VITALS: BP 123/82
[2018-04-08] MEDS ORDERED: LOPRESSOR100 M1 PO (12:39)
[2018-04-08] MEDS ORDERED: HYDROCODON-ACE1 EAC7 PO (13:06)
[2018-04-08] MEDS ORDERED: DOCUSATE SODIU100 MG PO (13:06)
[2018-04-08] MEDS ORDERED: AUGMENTIN875 MG PO (13:07)
== END 2018-04-08 15:48 | disposition home or self-care (01) | DRG 409 ==
LOC: EME 09:39 → EDOF 11:42 → 5SOUTH 11:42 → ENRESERV 11:43 → 5SOUTH 13:22
PROVIDERS: Emergency Medicine; Family Medicine; Hospitalist; Internal Medicine; Internal Medicine Gastroenterology; Surgery
PROC: 0FT44ZZ Resection of Gallbladder, Percutaneous Endoscopic Approach (ICD-10-PCS; principal; 2018-03-31)
PROC: 0DJ08ZZ Inspection of Upper Intestinal Tract, Via Natural or Artificial Opening Endoscopic (ICD-10-PCS; 2018-04-01)
PROC: 0FQ Hepatobiliary System and Pancreas, Repair (ICD-10-PCS; 2018-04-03)
DX: K85.10 Biliary acute pancreatitis without necrosis or infection (principal); I25.10 Atherosclerotic heart disease of native coronary artery without angina pectoris; K86.2 Cyst of pancreas; I48.0 Paroxysmal atrial fibrillation; N18.3 Chronic kidney disease, stage 3 (moderate); I49.5 Sick sinus syndrome; J43.9 Emphysema, unspecified; Z96.653 Presence of artificial knee joint, bilateral; K91.72 Accidental puncture and laceration of a digestive system organ or structure during other procedure; L40.9 Psoriasis, unspecified; M19.90 Unspecified osteoarthritis, unspecified site; Y83.8 Other surgical procedures as the cause of abnormal reaction of the patient, or of later complication, without mention of misadventure at the time of the procedure; I13.10 Hypertensive heart and chronic kidney disease without heart failure, with stage 1 through stage 4 chronic kidney disease, or unspecified chronic kidney disease; I48.92 Unspecified atrial flutter; E78.5 Hyperlipidemia, unspecified; E11.22 Type 2 diabetes mellitus with diabetic chronic kidney disease; K66.0 Peritoneal adhesions (postprocedural) (postinfection); E03.9 Hypothyroidism, unspecified; Y92.239 Unspecified place in hospital as the place of occurrence of the external cause; I25.2 Old myocardial infarction; E66.01 Morbid (severe) obesity due to excess calories; Z68.31 Body mass index [BMI] 31.0-31.9, adult; Z79.01 Long term (current) use of anticoagulants; Z79.899 Other long term (current) drug therapy; Z95.5 Presence of coronary angioplasty implant and graft; Z87.891 Personal history of nicotine dependence; Z85.528 Personal history of other malignant neoplasm of kidney; Z95.0 Presence of cardiac pacemaker; Z85.46 Personal history of malignant neoplasm of prostate; Z87.11 Personal history of peptic ulcer disease; Z90.5 Acquired absence of kidney; Z85.828 Personal history of other malignant neoplasm of skin; G47.30 Sleep apnea, unspecified; K80.12 Calculus of gallbladder with acute and chronic cholecystitis without obstruction; K92.2 Gastrointestinal hemorrhage, unspecified
CPT/HCPCS: 36415; 71045; 74176; 74330; 76705; 80048; 80053; 80076; 81003; 82248; 82948; 83690; 83735; 84100; 84484; 85025; 85027; 85610; 85730; 86850; 86900; 86901; 87081; 88304; 93005; 94010; 94640; 94640 76; 94760; 94799; 99202; 99281; 99285; C1769; C2625; J0131; J0330; J0360; J1100; J1160; J1170; J1650; J1815; J2405; J2543; J2710; J3010; J3430; J7030; J7040; J7050; J7120; J7643; P9017

== ENCOUNTER 2018-04-10 23:20 | Inpatient (IN) | payer OTHER, BC ==
[~2018-04-10] VITALS: Ht 172.7 cm; Wt 85.0 kg
[~2018-04-10 23:20] MED LIST changes: +AUGMENTIN875 MG PO; +DOCUSATE SODIU100 MG PO; +HYDROCODON-ACE1 EAC7 PO; +LOPRESSOR100 M1 PO
[2018-04-10 23:55] LABS: HEMATOCRIT 41.7 % (38.0-50.0); MCHC 33.6 G/DL (30.0-36.0); MCV 89.3 FL (86-99); PLATELET COUNT 285 K/uL (156-360); RBC DIS.WIDTH-CV 15.3 % (11.8-14.6); RBC DIS.WIDTH-SD 50.4 % (39-53); RED BLOOD COUNT 4.67 M/uL (4.00-5.50); WHITE BLOOD COUNT 16.7 K/uL (4.1-10.2)
[2018-04-11 00:03] LABS: ALBUMIN 3.6 g/dL (3.2-4.8)
[2018-04-11 00:04] LABS: CHLORIDE 101 mEq/L (99-109); POTASSIUM 4.1 mEq/L (3.7-5.4); SODIUM 140 mEq/L (136-147)
[2018-04-11 00:08] LABS: TOTAL BILIRUBIN 0.8 mg/dL (0.0-1.0)
[2018-04-11 00:09] LABS: ALKALINE PHOSPHATASE 183 IU/L (3-129)
[2018-04-11 00:10] LABS: CREATININE 1.4 mg/dL (0.6-1.3); GFR ESTIMATE (CALCULATED) 52 mL/min/ (58.99-99999)
[2018-04-11 00:11] LABS: AST (GOT) 24 IU/L (2-34); UREA NITROGEN (BUN) 15 mg/dL (9-23)
[2018-04-11 00:13] LABS: ALT (GPT) 44 IU/L (3-49); LIPASE 36 U/L (1.0-51.0)
[2018-04-11 00:14] LABS: GLUCOSE 162 mg/dL (70-99)
[2018-04-11 00:36] LABS: APPEARANCE SL.HAZY ((CLEAR)); BILIRUBIN NEGATIVE; BLOOD NEGATIVE; COLOR AMBER ((YELLOW)); GLUCOSE (STRIP) 150; KETONES NEGATIVE; LEUKOCYTES NEGATIVE; NITRITE NEGATIVE; PROTEIN (STRIP) 100; SPECIFIC GRAVITY 1.025 (1.000-1.030)
[2018-04-11 00:44] LABS: BACTERIA RARE /HPF; EPITHELIAL CELLS NONE SEEN /HPF; MUCUS TRACE /LPF; RED BLOOD CELLS 0-5 /HPF (0-5); UCUL ADDED? NO; WHITE BLOOD CELLS 0-5 /HPF (0-5)
[2018-04-11 03:37] LABS: INTER. NORMALIZED RATIO 1.5
[2018-04-11 04:00] VITALS: BP 165/111
[2018-04-11 07:30] VITALS: BP 131/95
[2018-04-11 11:46] VITALS: BP 130/94
[2018-04-11] MEDS ORDERED: TOPROL XL50 MG PO (12:15)
[2018-04-11] MEDS ORDERED: ADVAIR 250/501 DISK IH (12:21)
[2018-04-11] MEDS ORDERED: KENALOG,ARISTOC80 G1 TP (12:22)
[2018-04-11] MEDS ORDERED: CALCIPOTRIENE60 G1 TP (12:24)
[2018-04-11 16:21] VITALS: BP 128/60
[2018-04-11 16:39] LABS: INTER. NORMALIZED RATIO 1.7
[2018-04-11 21:08] VITALS: BP 135/84
[2018-04-12] VITALS (7 sets, daily range): BP systolic 129–153; BP diastolic 75–96
[2018-04-12 02:12] LABS: HEMATOCRIT 34.7 % (38.0-50.0); MCH 29.5 PG (29.0-34.0); MCHC 33.7 G/DL (30.0-36.0); MCV 87.6 FL (86-99); PLATELET COUNT 240 K/uL (156-360); RBC DIS.WIDTH-CV 15.3 % (11.8-14.6); RBC DIS.WIDTH-SD 49.1 % (39-53); RED BLOOD COUNT 3.96 M/uL (4.00-5.50)
[2018-04-12 02:13] LABS: INTER. NORMALIZED RATIO 1.8
[2018-04-12 02:21] LABS: CHLORIDE 100 mEq/L (99-109); POTASSIUM 4.1 mEq/L (3.7-5.4); SODIUM 137 mEq/L (136-147)
[2018-04-12 02:23] LABS: GLUCOSE 188 mg/dL (70-99); TOTAL PROTEIN 5.1 g/dL (6.4-8.3)
[2018-04-12 02:27] LABS: ALKALINE PHOSPHATASE 160 IU/L (3-129); CREATININE 1.1 mg/dL (0.6-1.3); GFR ESTIMATE (CALCULATED) > 59 mL/min/ (58.99-99999); TOTAL BILIRUBIN 1.1 mg/dL (0.0-1.0); TROP-I INTERPRETATION NEGATIVE; TROPONIN-I 0.04 ng/mL (0.0-0.30)
[2018-04-12 02:28] LABS: AST (GOT) 21 IU/L (2-34); UREA NITROGEN (BUN) 15 mg/dL (9-23)
[2018-04-12 02:30] LABS: ALT (GPT) 32 IU/L (3-49); HEMOGLOBIN 11.7 G/DL (12.5-16.6); WHITE BLOOD COUNT 33.2 K/uL (4.1-10.2)
[2018-04-12 10:07] LABS: TROP-I INTERPRETATION NEGATIVE; TROPONIN-I 0.02 ng/mL (0.0-0.30)
[2018-04-12 14:22] LABS: TROP-I INTERPRETATION NEGATIVE; TROPONIN-I 0.02 ng/mL (0.0-0.30)
[2018-04-13 03:00] VITALS: BP 143/83
[2018-04-13 06:53] LABS: HEMATOCRIT 35.3 % (38.0-50.0); HEMOGLOBIN 11.3 G/DL (12.5-16.6); MCH 28.5 PG (29.0-34.0); MCV 89.1 FL (86-99); PLATELET COUNT 220 K/uL (156-360); RBC DIS.WIDTH-CV 15.5 % (11.8-14.6); RBC DIS.WIDTH-SD 50.9 % (39-53); RED BLOOD COUNT 3.96 M/uL (4.00-5.50); WHITE BLOOD COUNT 21.8 K/uL (4.1-10.2)
[2018-04-13 07:05] LABS: INTER. NORMALIZED RATIO 2.3
[2018-04-13 07:22] LABS: ALBUMIN 2.6 G/DL (3.2-4.8); ALKALINE PHOSPHATASE 132 IU/L (3-129); ALT (GPT) 26 IU/L (3-49); AST (GOT) 25 IU/L (2-34); CHLORIDE 103 MEQ/L (99-109); CREATININE 1.2 MG/DL (0.6-1.3); GFR ESTIMATE (CALCULATED) > 59 mL/min/ (58.99-99999); GLUCOSE 90 mg/dL (70-99); PHOSPHORUS 2.9 mg/dL (2.5-4.9); POTASSIUM 3.6 MEQ/L (3.7-5.4); SODIUM 142 MEQ/L (136-147); TOTAL BILIRUBIN 0.8 MG/DL (0.0-1.0); TOTAL PROTEIN 4.9 G/DL (6.4-8.3); UREA NITROGEN (BUN) 18 mg/dL (9-23)
[2018-04-13 08:22] VITALS: BP 140/88
[2018-04-13 10:54] VITALS: BP 133/93
[2018-04-13 16:02] VITALS: BP 139/96
[2018-04-13 19:09] VITALS: BP 155/97
[2018-04-14 00:14] VITALS: BP 151/92
[2018-04-14 03:17] VITALS: BP 147/93
[2018-04-14 05:27] LABS: HEMATOCRIT 33.3 % (38.0-50.0); MCH 29.3 PG (29.0-34.0); MCV 88.8 FL (86-99); PLATELET COUNT 237 K/uL (156-360); RBC DIS.WIDTH-CV 15.5 % (11.8-14.6); RBC DIS.WIDTH-SD 51.1 % (39-53); RED BLOOD COUNT 3.75 M/uL (4.00-5.50); WHITE BLOOD COUNT 21.9 K/uL (4.1-10.2)
[2018-04-14 05:54] LABS: CHLORIDE 102 MEQ/L (99-109); GLUCOSE 65 mg/dL (70-99); POTASSIUM 3.5 MEQ/L (3.7-5.4); SODIUM 141 MEQ/L (136-147); UREA NITROGEN (BUN) 19 mg/dL (9-23)
[2018-04-14 06:45] LABS: INTER. NORMALIZED RATIO 3.7
[2018-04-14 06:48] LABS: CREATININE 1.2 MG/DL (0.6-1.3); GFR ESTIMATE (CALCULATED) > 59 mL/min/ (58.99-99999)
[2018-04-14 08:02] VITALS: BP 162/94
[2018-04-14 11:44] VITALS: BP 161/95
[2018-04-14 19:07] VITALS: BP 148/93
[2018-04-14 19:52] VITALS: BP 159/100
[2018-04-15] VITALS (8 sets, daily range): BP systolic 130–163; BP diastolic 73–95
[2018-04-15 05:30] LABS: HEMATOCRIT 31.9 % (38.0-50.0); HEMOGLOBIN 10.5 G/DL (12.5-16.6); MCH 28.8 PG (29.0-34.0); MCHC 32.9 G/DL (30.0-36.0); MCV 87.4 FL (86-99); PLATELET COUNT 256 K/uL (156-360); RBC DIS.WIDTH-CV 15.4 % (11.8-14.6); RBC DIS.WIDTH-SD 49.2 % (39-53); RED BLOOD COUNT 3.65 M/uL (4.00-5.50); WHITE BLOOD COUNT 18.4 K/uL (4.1-10.2)
[2018-04-15 05:37] LABS: INTER. NORMALIZED RATIO 5.8
[2018-04-15 06:42] LABS: CHLORIDE 101 MEQ/L (99-109); CREATININE 1.1 MG/DL (0.6-1.3); GFR ESTIMATE (CALCULATED) > 59 mL/min/ (58.99-99999); POTASSIUM 3.3 MEQ/L (3.7-5.4); SODIUM 139 MEQ/L (136-147); UREA NITROGEN (BUN) 13 mg/dL (9-23)
[2018-04-15 06:47] LABS: GLUCOSE 138 mg/dL (70-99)
[2018-04-16] VITALS: BP 154/73
[2018-04-16 07:25] VITALS: BP 155/80
[2018-04-16 08:42] LABS: HEMATOCRIT 32.8 % (38.0-50.0); HEMOGLOBIN 10.9 G/DL (12.5-16.6); MCH 29.1 PG (29.0-34.0); MCHC 33.2 G/DL (30.0-36.0); MCV 87.5 FL (86-99); PLATELET COUNT 279 K/uL (156-360); RBC DIS.WIDTH-CV 15.6 % (11.8-14.6); RBC DIS.WIDTH-SD 49.7 % (39-53); RED BLOOD COUNT 3.75 M/uL (4.00-5.50); WHITE BLOOD COUNT 18.8 K/uL (4.1-10.2)
[2018-04-16 09:02] LABS: CHLORIDE 102 MEQ/L (99-109); CREATININE 1.2 MG/DL (0.6-1.3); GFR ESTIMATE (CALCULATED) > 59 mL/min/ (58.99-99999); GLUCOSE 138 mg/dL (70-99); POTASSIUM 3.5 MEQ/L (3.7-5.4); SODIUM 140 MEQ/L (136-147); UREA NITROGEN (BUN) 11 mg/dL (9-23)
[2018-04-16 12:00] VITALS: BP 153/78
[2018-04-16 16:51] VITALS: BP 139/73
[2018-04-16 19:15] VITALS: BP 144/68
[2018-04-17] VITALS (7 sets, daily range): BP systolic 137–163; BP diastolic 63–79
[2018-04-17 05:34] LABS: INTER. NORMALIZED RATIO 3.4
[2018-04-17 09:48] LABS: BASOPHIL (%) 0.4 % (0-1); BASOPHIL COUNT 0.1 K/uL (0-0.1); EOSINOPHIL (%) 1.5 % (0-5); EOSINOPHIL COUNT 0.3 K/uL (0-0.3); HEMOGLOBIN 11.6 G/DL (12.5-16.6); IMMATURE GRANULOCYTE (%) 3.1 % (0.0-0.7); LYMPHOCYTE (%) 3.7 % (15-42); LYMPHOCYTE COUNT 0.7 K/uL (1.0-2.8); MCH 29.1 PG (29.0-34.0); MCHC 33.1 G/DL (30.0-36.0); MCV 87.7 FL (86-99); MONOCYTE (%) 7.1 % (3-12); MONOCYTE COUNT 1.3 K/uL (0-0.8); NEUTROPHIL (%) 84.2 % (45-76); NEUTROPHIL COUNT 15.7 K/uL (1.8-6.4); PLATELET COUNT 348 K/uL (156-360); RBC DIS.WIDTH-CV 15.5 % (11.8-14.6); RBC DIS.WIDTH-SD 49.7 % (39-53); RED BLOOD COUNT 3.99 M/uL (4.00-5.50); WHITE BLOOD COUNT 18.6 K/uL (4.1-10.2)
[2018-04-17 10:12] LABS: CHLORIDE 104 MEQ/L (99-109); CREATININE 1.1 MG/DL (0.6-1.3); GFR ESTIMATE (CALCULATED) > 59 mL/min/ (58.99-99999); GLUCOSE 146 mg/dL (70-99); POTASSIUM 3.9 MEQ/L (3.7-5.4); SODIUM 138 MEQ/L (136-147); UREA NITROGEN (BUN) 10 mg/dL (9-23)
[2018-04-18 04:10] VITALS: BP 161/81
[2018-04-18 06:04] LABS: HEMATOCRIT 35.1 % (38.0-50.0); HEMOGLOBIN 11.5 G/DL (12.5-16.6); MCH 28.5 PG (29.0-34.0); MCHC 32.8 G/DL (30.0-36.0); MCV 87.1 FL (86-99); PLATELET COUNT 380 K/uL (156-360); RBC DIS.WIDTH-CV 15.4 % (11.8-14.6); RBC DIS.WIDTH-SD 49.1 % (39-53); RED BLOOD COUNT 4.03 M/uL (4.00-5.50); WHITE BLOOD COUNT 15.7 K/uL (4.1-10.2)
[2018-04-18 06:11] LABS: INTER. NORMALIZED RATIO 2.7
[2018-04-18 06:27] LABS: CHLORIDE 105 MEQ/L (99-109); CREATININE 1.2 MG/DL (0.6-1.3); GFR ESTIMATE (CALCULATED) > 59 mL/min/ (58.99-99999); GLUCOSE 134 mg/dL (70-99); MAGNESIUM 2.1 mg/dl (1.3-2.7); POTASSIUM 4.3 MEQ/L (3.7-5.4); SODIUM 139 MEQ/L (136-147); UREA NITROGEN (BUN) 9 mg/dL (9-23)
[2018-04-18 07:55] VITALS: BP 152/82
[2018-04-18 09:11] LABS: C-REACTIVE PROTEIN 93.9 MG/L (0-10)
[2018-04-18 12:24] VITALS: BP 133/86
[2018-04-18 16:40] VITALS: BP 142/74
[2018-04-18 20:40] VITALS: BP 160/71
[2018-04-19 00:57] VITALS: BP 131/65
[2018-04-19 04:24] VITALS: BP 145/74
[2018-04-19 05:57] LABS: HEMATOCRIT 35.4 % (38.0-50.0); HEMOGLOBIN 11.3 G/DL (12.5-16.6); MCH 27.8 PG (29.0-34.0); MCHC 31.9 G/DL (30.0-36.0); PLATELET COUNT 340 K/uL (156-360); RBC DIS.WIDTH-CV 15.2 % (11.8-14.6); RBC DIS.WIDTH-SD 48.9 % (39-53); RED BLOOD COUNT 4.07 M/uL (4.00-5.50); WHITE BLOOD COUNT 14.4 K/uL (4.1-10.2)
[2018-04-19 06:19] LABS: INTER. NORMALIZED RATIO 1.9
[2018-04-19 06:41] LABS: CHLORIDE 104 MEQ/L (99-109); CREATININE 1.2 MG/DL (0.6-1.3); GFR ESTIMATE (CALCULATED) > 59 mL/min/ (58.99-99999); GLUCOSE 138 mg/dL (70-99); POTASSIUM 3.7 MEQ/L (3.7-5.4); SODIUM 139 MEQ/L (136-147); UREA NITROGEN (BUN) 10 mg/dL (9-23)
[2018-04-19 07:30] LABS: ABS NEUTROPHIL COUNT 11.9; ANISOCYTOSIS 1+; ATYPICAL LYMPHOCYTE 0.9 %; BAND NEUTROPHILS 0.9 % (0-8.0); BASOPHILS 1.7 %; BURR CELLS 2+; EOSINOPHIL ABS CT 0.5; EOSINOPHILS 3.5 % (0-5.0); LYMPHOCYTES 5.3 % (15.0-45.0); MONOCYTES 6.1 % (0-9.0); PLAT.SUFFICIENCY ADEQUATE; POIKILOCYTOSIS 2+; POLYCHROMASIA 1+; SEG.NEUTROPHILS 81.6 % (46.0-76.0)
[2018-04-19 08:13] VITALS: BP 167/83
[2018-04-19] MEDS ORDERED: AUGMENTIN875 MG PO (08:57)
[2018-04-19] MEDS ORDERED: Ocean Nasal 0.65% BOTH NARES (08:57)
[2018-04-19] MEDS ORDERED: COUMADIN1 MG PO (09:02)
[2018-04-19] MEDS ORDERED: CARDIZEM60 MG PO (09:02)
== END 2018-04-19 10:28 | disposition home or self-care (01) | DRG 393 ==
LOC: EME 23:20 → EDOF 04-11 02:50 → 2EAST 04-11 02:50 → ENRESERV 04-11 02:53 → 2EAST 04-11 03:57 → ENRESERV 04-12 02:09 → 4EAST 04-12 02:20 → ENRESERV 04-17 07:57 → 5SOUTH 04-17 12:37
PROVIDERS: Internal Medicine; Physician Assistant Medical; Physician Assistant Surgical; Surgery
DX: K91.89 Other postprocedural complications and disorders of digestive system (principal); K65.1 Peritoneal abscess; J18.9 Pneumonia, unspecified organism; R73.03 Prediabetes; M19.90 Unspecified osteoarthritis, unspecified site; A41.9 Sepsis, unspecified organism; I48.2 Chronic atrial fibrillation; I25.10 Atherosclerotic heart disease of native coronary artery without angina pectoris; G47.30 Sleep apnea, unspecified; F05 Delirium due to known physiological condition; N18.3 Chronic kidney disease, stage 3 (moderate); Z96.653 Presence of artificial knee joint, bilateral; I13.10 Hypertensive heart and chronic kidney disease without heart failure, with stage 1 through stage 4 chronic kidney disease, or unspecified chronic kidney disease; Z79.01 Long term (current) use of anticoagulants; Z85.528 Personal history of other malignant neoplasm of kidney; Z85.46 Personal history of malignant neoplasm of prostate; Z80.9 Family history of malignant neoplasm, unspecified; Z90.49 Acquired absence of other specified parts of digestive tract; Z95.0 Presence of cardiac pacemaker; Z90.5 Acquired absence of kidney; Z87.891 Personal history of nicotine dependence; Z87.11 Personal history of peptic ulcer disease; Z95.5 Presence of coronary angioplasty implant and graft; I25.2 Old myocardial infarction; Z85.828 Personal history of other malignant neoplasm of skin; J44.9 Chronic obstructive pulmonary disease, unspecified
CPT/HCPCS: 70450; 71046; 74176; 76705; 80048; 80053; 81003; 83605; 83690; 83735; 84100; 84484; 85025; 85027; 85610; 86140; 87040; 87070; 87075; 87205; 93005; 94640; 94640 76; 94799; 99281; 99285; J0295; J1170; J1630; J2543; J2765; J3010; J7030; J7040; J7050; J7120; S0028